=== PATIENT | female | born 1955 | race Caucasian/White ===

== ENCOUNTER 2023-06-01 06:45 | Day surgery (SDC) | payer OTHER ==
[2023-05-31 15:59] LABS: Potassium 3.6 mEq/L (3.5-5.1)
[2023-06-01] MEDS ORDERED: Ringers Lactate 1,000 ML IV ONE (07:16)
[2023-06-01] MEDS ORDERED: LIDOCAINE 1% MPF 5 ML VIAL ONE (08:27)
[2023-06-01] MEDS ORDERED: propofoL 200 MG/20 ML VIAL IV ONE (08:27)
[2023-06-01 10:54] VITALS: TEMP 97; O2SAT 100
[2023-06-01 10:55] VITALS: BP 125/52
--- NOTE | 2023-06-01 15:46 | EKG ---
Test Date: 2023-05-31 Test Time: 15:25:48 Radar Repairer: LISA MEASUREMENT RESULTS: Intervals: Rate: 59 NE: 162 QRSD: 76 QT: 434 QTc: 429 [place]: P: 0 NE: 162 QRS: 1 T: 9 INTERPRETIVE STATEMENTS: Sinus bradycardia Cannot rule out Anterior infarct, age undetermined Abnormal ECG No previous ECG available for comparison Electronically Signed On 06-01-23 15:42:42 CDT by Konrad Ramirez
== END 2023-06-01 09:20 | disposition home or self-care (01) ==
LOC: OR 06:45
PROVIDERS: ATTEND Surgery
PROC: 0DBL8ZX Excision of Transverse Colon, Via Natural or Artificial Opening Endoscopic, Diagnostic (ICD-10-PCS; principal; 2023-06-01 08:00)
DX: Z12.11 Encounter for screening for malignant neoplasm of colon (principal); D12.3 Benign neoplasm of transverse colon; K57.30 Diverticulosis of large intestine without perforation or abscess without bleeding; K64.8 Other hemorrhoids; K64.4 Residual hemorrhoidal skin tags
CPT/HCPCS: 93005 ×2; 80048; 36415; 88305; 45385; J2704; J2001; J7120

== ENCOUNTER 2025-05-08 06:15 | Day surgery (SDC) | payer OTHER ==
[2025-05-05 13:37] LABS: Absolute Lymphocytes (CBC) 2.2 K/uL (0.7-4.9); Hematocrit 36.4 % (36.0-45.0); Hemoglobin 12.1 g/dL (12.0-15.0); MCH 29.3 pg (27.0-35.0); MCHC 33.2 g/dL (32.0-36.0); MCV 88.3 fL (80-100); MPV 8.4 fL (7.6-11.3); Nucleated RBC Absolute Count 0.0 (0-0); Nucleated Red Blood Cells % 0.0 % (0-0); RBC Red Blood Cell Count 4.12 M/uL (3.86-4.86); White Blood Count 7.40 thou/uL (4.3-10.9)
[2025-05-05 13:54] LABS: Anion Gap 6.2 mEq/L (5.0-15.0); BUN Blood Urea Nitrogen 12.0 mg/dL (7-18); Glucose Level 125.0 mg/dL (74-106); Potassium 3.2 mEq/L (3.5-5.1)
[2025-05-08] MEDS: Ringers Lactate 1,000 ML IV ONE (06:45)
[2025-05-08 06:57] VITALS: O2SAT 100
[2025-05-08] MEDS ORDERED: LIDOCAINE 1% MPF 5 ML VIAL ONE (07:13)
[2025-05-08] MEDS ORDERED: FENTANYL CITR 100 MCG/2 ML ONE (07:13)
[2025-05-08] MEDS ORDERED: GLYCOPYRROLATE 0.2 MG/ML SYR ONE (07:14)
[2025-05-08 09:23] VITALS: BP 127/69; TEMP 97.3
== END 2025-05-08 09:15 | disposition home or self-care (01) ==
LOC: OR 06:15
PROVIDERS: ATTEND Surgery
PROC: 0DBM8ZX Excision of Descending Colon, Via Natural or Artificial Opening Endoscopic, Diagnostic (ICD-10-PCS; 2025-05-08)
PROC: 0DB98ZX Excision of Duodenum, Via Natural or Artificial Opening Endoscopic, Diagnostic (ICD-10-PCS; 2025-05-08)
PROC: 0DB68ZX Excision of Stomach, Via Natural or Artificial Opening Endoscopic, Diagnostic (ICD-10-PCS; 2025-05-08)
PROC: 0DB58ZX Excision of Esophagus, Via Natural or Artificial Opening Endoscopic, Diagnostic (ICD-10-PCS; 2025-05-08)
PROC: 0DB48ZX Excision of Esophagogastric Junction, Via Natural or Artificial Opening Endoscopic, Diagnostic (ICD-10-PCS; 2025-05-08)
PROC: 0DBK8ZX Excision of Ascending Colon, Via Natural or Artificial Opening Endoscopic, Diagnostic (ICD-10-PCS; principal; 2025-05-08 08:00)
PROC: 0DBN8ZX Excision of Sigmoid Colon, Via Natural or Artificial Opening Endoscopic, Diagnostic (ICD-10-PCS; 2025-05-08 08:00)
DX: Z12.11 Encounter for screening for malignant neoplasm of colon (principal); K21.9 Gastro-esophageal reflux disease without esophagitis; K29.50 Unspecified chronic gastritis without bleeding; K21.00 Gastro-esophageal reflux disease with esophagitis, without bleeding; D12.2 Benign neoplasm of ascending colon; D12.4 Benign neoplasm of descending colon; K63.5 Polyp of colon; K22.5 Diverticulum of esophagus, acquired
CPT/HCPCS: 93005; 85025; 80048; 36415; 88312; 88305; 45385; 43239; J2704; J2003; J3010; J7120